=== PATIENT | female | born 1930 | race Caucasian/White ===

== ENCOUNTER 2017-07-11 18:26 | Emergency (ER) | payer BC, MEDICARE ==
[2017-07-11 18:53] VITALS: BP 153/65; PULSE 45; O2SAT 100
--- NOTE | 2017-07-11 19:39 | ERPHSYRPT ---
- History of Present Illness Time Seen by Provider: 07/11/17 19:03 Source: patient Exam Limitations: no limitations Patient Subjective Stated Complaint: pt states on 07/08/17 she was helped up and after her friend helping her she noticed left arm pain. pt states worse when she moves it. Triage Nursing Assessment: pt pink, warm, dry. ambulated into ER without difficulty with walker. no deformity noted to left arm. radial pulse strong. Physician History: 87 y/o female comes to the ER with complaints of left arm pain that started on Sunday after patient slid off her bed and landed on her left side. Pt was attempted to be helped up by family and patient heard a snapping sound. Since then patient has been having shoulder pain. Pt describes the pain as sharp, intermittent, as high as 10/10 but only with movement and pt has not taken any pain meds. No other injuries. Occurred: days ago Method of Injury: fell, twisted Quality: intermittent Severity of Pain-Max: severe Severity of Pain-Current: none Extremities Pain Location: shoulder: left, arm: left Modifying Factors: Improves With: nothing Associated Symptoms: none Allergies/Adverse Reactions: Penicillins Allergy (Verified 07/11/17 18:53) Sulfa (Sulfonamide Antibiotics) Allergy (Verified 07/11/17 18:53) Home Medications: Apixaban [Eliquis] 2.5 mg PO DAILY 07/11/17 [History] Carvedilol 3.125 mg [Coreg 3.125 MG] 3.125 mg PO BID 07/11/17 [History] Furosemide 40 mg [Lasix 40 MG] 40 mg PO DAILY 07/11/17 [History] Glipizide 5 mg [Glucotrol 5 MG] 5 mg PO DAILY 07/11/17 [History] Metformin HCl [Glucophage] 1,000 mg PO BID 07/11/17 [History] Potassium Chloride 20 meq PO DAILY 07/11/17 [History] Simvastatin 20Mg [Zocor 20Mg] 20 mg PO DAILY 07/11/17 [History] Hx Tetanus, Diphtheria Vaccination/Date Given: Yes (up to date) Hx Influenza Vaccination/Date Given: No Hx Pneumococcal Vaccination/Date Given: No Immunizations Up to Date: Yes - Review of Systems Constitutional: No Fever, No Chills Eyes: No Symptoms Ears, Nose, & Throat: No Symptoms Respiratory: No Cough, No Dyspnea Cardiac: No Chest Pain, No Edema, No Syncope Abdominal/Gastrointestinal: No Abdominal Pain, No Nausea, No Vomiting, No Diarrhea Genitourinary Symptoms: No Dysuria Musculoskeletal: Arthralgias, Fall, Myalgias, No Back Pain, No Neck Pain Skin: No Rash Neurological: No Dizziness, No Focal Weakness, No Sensory Changes Psychological: No Symptoms Endocrine: No Symptoms All Other Systems: Reviewed and Negative - Past Medical History Pertinent Past Medical History: Yes Cardiac History: Coronary Artery Disease, Hypertension Endocrine Medical History: Diabetes Type II - Past Surgical History Past Surgical History: Yes Cardiac: Cardiac Catheterization, Cardiac Stent Gastrointestinal: Cholecystectomy - Social History Smoking Status: Never smoker Exposure to second hand smoke: No Drug Use: none Patient Lives Alone: Yes - Female History Hx Now: No - Nursing Vital Signs Nursing Vital Signs: Initial Vital Signs Temperature 98.4 F 07/11/17 18:45 Pulse Rate 45 L 07/11/17 18:45 Respiratory Rate 20 07/11/17 18:45 Blood Pressure 153/65 07/11/17 18:45 O2 Sat by Pulse Oximetry 100 07/11/17 18:45 Pain Scale Pain Intensity 5 - Physical Exam General Appearance: alert Eyes, Ears, Nose, Throat Exam: moist mucous membranes Neck Exam: non-tender, supple Cardiovascular/Respiratory Exam: chest non-tender, normal breath sounds, regular rate/rhythm, no respiratory distress Abdominal Exam: non-tender, No guarding Back Exam: normal inspection, No vertebral tenderness Shoulder Exam: bone tenderness, limited ROM, soft tissue tenderness Elbow/Forearm Exam: normal inspection Wrist Exam: normal inspection Hand Exam: normal inspection Neuro/Tendon Exam: normal sensation, normal motor functions Mental Status Exam: alert, oriented x 3, cooperative Skin Exam: normal color, warm, dry SpO2: 100 Oxygen Delivery: Room Air - Course Nursing assessment & vital signs reviewed: Yes EKG Interpreted by Me: RATE (HR 40), Non-specific ST Changes Ordered Tests: Active Orders 24 hr Category Date Time Status EKG-ER Only STAT Care 07/11/17 19:40 Active HUMERUS Stat Exams 07/11/17 20:00 Taken SHOULDER Stat Exams 07/11/17 20:00 Taken - Progress Progress: unchanged Progress Note: 01/31/18 20:18 The shoulder xray and humerus does not show any acute fracture. The patient will be placed in a sling. The patient is refusing pain meds. Patient arrived with a HR of 45 and the EKG does not show any acute findings. The patient mentions she has always had low HR. The patient also denies any chest pain, shortness of breath, palpitations or dizziness. Pt has agreed to F/U with PCP for MRI shoulder to R/O ligament tear and to follow up concerning low heart rate. - Departure Time of Disposition: 20:21 Departure Disposition: Home Clinical Impression: Bradycardia Shoulder pain Qualifiers: Chronicity: acute Laterality: left Qualified Code(s): M25.512 - Pain in left shoulder Condition: Stable Critical Care Time: No Referrals: DARIEN GUERRA [Primary Care Provider] - Instructions: Shoulder Pain (DC), Bradycardia (DC) Additional Instructions: Follow up with your primary care doctor tomorrow regarding shoulder pain for possible MRI and for low heart rate. Return to the ER if you should have chest pain, shortness of breath, palpitations or dizziness. Take tylenol for shoulder pain.
--- NOTE | 2017-07-12 08:30 | XRAY ---
Indication: Pain following fall. Comparison: May 04, 2007. 3 views of the left shoulder again demonstrates mild osteopenia, moderate AC degenerative arthropathy with inferior spurring, and mild glenohumeral degenerative changes. No new/acute bony, articular, or soft tissue abnormalities.
--- NOTE | 2017-07-12 08:32 | XRAY ---
Indication: Pain following fall. Comparison: None 2 views of the left humerus demonstrates mild osteopenia, mild/moderate shoulder degenerative changes, moderate multilevel degenerative spondylosis, and scattered vascular calcifications. No other bony, articular, or soft tissue abnormalities.
== END 2017-07-11 20:37 | disposition home or self-care (01) ==
LOC: ED 18:26
DX: M25.512 Pain in left shoulder (principal); Z79.899 Other long term (current) drug therapy; R00.1 Bradycardia, unspecified; E11.9 Type 2 diabetes mellitus without complications; I10 Essential (primary) hypertension; W06.XXXS Fall from bed, sequela
CPT/HCPCS: 73030; 73060; 99283